=== PATIENT | female | born 1960 | race Caucasian/White ===

== ENCOUNTER → 2021-03-28 | Outpatient (CLI) | payer OTHER ==
[~2021-03-28] MED LIST: IOHEXOL 350 MG/ML 100 ML VIAL. IV ONE
--- NOTE | 2021-03-28 12:39 | RAD ---
EXAM: CT ABDOMEN/PELVIS WITH AND WITHOUT CONTRAST. HISTORY: Hematuria. TECHNIQUE: Computed tomography of the abdomen and pelvis was performed before and after the intraveno us administration of iodinated contrast. One or more of the following individualized dose reduction t echniques were utilized for this examination: 1. Automated exposure control. 2. Adjustment of the mA and/or kV according to patient size. 3. Use of iterative reconstruction technique. COMPARISON: None. FINDINGS: Lung windows through the visualized portions of the bases reveal mild atelectasis. Bone win dows reveal no suspicious lesions. There are no renal or ureteral calculi. There is a small extrarenal pelvis on the right. There are no suspicious renal lesions bilaterally. There is mild urothelial thickening along the right ureter. Th ere are no clear upper tract urothelial lesions. Images of the bladder reveal trace wall thickening w ithout focal lesions The liver, gallbladder, pancreas, adrenal glands and spleen are unremarkable. There are no pathologic ally enlarged lymph nodes. Sigmoid diverticulosis is moderate. The appendix is not inflamed. There is no small bowel obstruction . There is a small hiatal hernia. IMPRESSION: 1. No renal or ureteral calculi. No solid renal lesions. No clear urothelial lesions. Recommend ongoi ng follow-up/management of hematuria. 2. Small hiatal hernia. Electronically signed by: Ramila Stapleton MD (03/28/2021 12:36 PM) [id number]
== END ==
LOC: CT 08:57
PROVIDERS: ATTEND Specialist
DX: K57.30 Diverticulosis of large intestine without perforation or abscess without bleeding (principal); K44.9 Diaphragmatic hernia without obstruction or gangrene; R31.0 Gross hematuria; J98.11 Atelectasis
CPT/HCPCS: 74178; Q9967